=== PATIENT | male | born 1980 | race Two or more races ===

== ENCOUNTER → 2017-04-30 | Outpatient (CLI) | payer BC ==
[2017-04-30 19:02] LABS: INFLUENZA B PATIENT NEGATIVE (NEGATIVE); OBC FLU VALID
[2017-04-30 19:04] LABS: INFLUENZA A PATIENT NEGATIVE (NEGATIVE)
== END | disposition home or self-care (01) ==
LOC: LAB 17:38
DX: J11.1 Influenza due to unidentified influenza virus with other respiratory manifestations (principal)
CPT/HCPCS: 87804; 87804-59

== ENCOUNTER → 2020-03-09 | Outpatient (CLI) | payer BC, OTHER | LOC: LAB 08:03 | PROVIDERS: ATTEND Internal Medicine Pulmonary Disease | DX: U07.1 COVID-19 (principal) | CPT/HCPCS: 87426; U0003 ==

== ENCOUNTER → 2020-10-17 | Outpatient (CLI) | payer OTHER, BC | LOC: LAB 15:31 | PROVIDERS: ATTEND Internal Medicine Pulmonary Disease | DX: M79.10 Myalgia, unspecified site (principal); R68.83 Chills (without fever); Z20.822 Contact with and (suspected) exposure to COVID-19 | CPT/HCPCS: 87426; U0003; U0005 ==